=== PATIENT | male | born 1995 | race Caucasian/White ===

== ENCOUNTER 2017-10-24 10:23 | Emergency (ER) | payer OTHER ==
[2017-10-24] MEDS ORDERED: NS 1,000 ML IV ONE (10:30)
[2017-10-24] MEDS ORDERED: KETOROLAC 30 MG/1 ML SDV IVP ONE (10:30)
[2017-10-24] MEDS ORDERED: PROMETHAZINE HCL 25 MG/ML INJ IVP ONE (10:30)
--- NOTE | 2017-10-24 10:39 | EDPHY ---
H & P Stated Complaint: N/V/D gen abd cramps since yesterday Time Seen by Provider: 10/24/17 10:35 HPI/ROS: HPI: This is a 21-year-old male who presents with Chief Complaint: N/V/D gen abdominal cramps since yesterday Location:periumbilical abdomen Quality: N/V/D/cramps Duration: since yesterday evening around 7 pm Signs and Symptoms: no fever, + nausea, + vomiting, no hematemesis, no blood in stool, no abdominal bloating, + diarrhea, no back pain, no urinary symptoms, no testicular/groin pain, no indigestion, no chest pain, no shortness of breath Timing: Acute, intermittent episodes Severity: Mild Context: Patient is originally from [place], presents with complaints of sudden onset of nausea and abdominal cramps in the periumbilical area that started yesterday around 7:00 p.m. He reports that he had a burger from a restaurant around 2:00 p.m. He then felt nauseous and has vomited initially water and then bile for total of 4 times. He has had 3-4 loose stools. He denies hematemesis, blood in stool, fever, urinary symptoms. Patient reports that he has similar occurrences in the past with negative colonoscopy in 2016 and negative endoscopy in 2010. He was told that he has irritable bowel. He does admit to smoking marijuana daily for the last several weeks. Last use of marijuana was yesterday evening. No recent antibiotic use. No recent foreign travel. He moved from [place] to [place] for employment reasons. Modifying Factors: None Comment: ROS: see HPI Constitutional: No fever, no chills, no weight loss Eyes: No blurred vision Respiratory: No shortness of breath, no cough Cardiovascular: No chest pain, no palpitations Gastrointestinal: + nausea, + vomiting, +diarrhea, no hematemesis, no blood in stool Genitourinary: No dysuria, no blood in urine Extremities: No myalgias, no edema Neurologic: No weakness, no numbness Skin: No rashes, no petechiae Hematologic: No bruising, no bleeding MEDICAL/SURGICAL/SOCIAL HISTORY: Medical history: Depression, irritable bowel syndrome Surgical history: Denies Social history: Regular marijuana use. Employed. Smoker. Family history noncontributory. CONSTITUTIONAL: Extremely, well-appearing redheaded teenage male, awake and alert, no obvious distress HEENT: Atraumatic and normocephalic, PERRL, EOMI. Nares patent; no rhinorrhea; no nasal mucosal edema. Tympanic membranes clear. Oropharynx clear, no exudate and moist pink mucosa. Airway patent. No lymphadenopathy. No meningismus. Cardiovascular: Normal S1/S2, regular rate, regular rhythm, without murmur rub or gallop. PULMONARY/CHEST: Symmetrical and nontender. Clear to auscultation bilaterally. Good air movement. No accessory muscle usage. ABDOMEN: Soft, nondistended, nontender, no rebound, no guarding, no peritoneal signs, no masses or organomegaly. No CVAT. EXTREMITIES: 2/2 pulses, strength 5/5, no deformities, no clubbing, no cyanosis or edema. NEUROLOGICAL: no focal neuro deficits. GCS 15. SKIN: Warm and dry, no erythema. no rash. Good capillary refill. Source: Patient Exam Limitations: No limitations - Medical/Surgical History Hx Asthma: No Hx Chronic Respiratory Disease: No Hx Diabetes: No Hx Cardiac Disease: No Hx Renal Disease: No Hx Cirrhosis: No Hx Alcoholism: No Hx HIV/AIDS: No Hx Splenectomy or Spleen Trauma: No Other PMH: depression - Social History Smoking Status: Current some day smoker Constitutional: Initial Vital Signs Temperature (C) 37.0 C 10/24/17 10:25 Heart Rate 89 10/24/17 10:25 Respiratory Rate 18 10/24/17 10:25 Blood Pressure 101/80 10/24/17 10:25 O2 Sat (%) 97 10/24/17 10:25 O2 Delivery Mode Room Air Allergies/Adverse Reactions: No Known Allergies Allergy (Unverified 10/24/17 10:25) Home Medications: Medication Instructions Recorded Lexapro 10/24/17 Ondansetron Odt [Zofran Odt 4 mg 4 mg PO Q4 PRN #12 tab 10/24/17 (*)] Medical Decision Making ED Course/Re-evaluation: Vital signs reviewed and stable. No systemic signs. Patient's abdomen is soft and nontender. Doubt surgical process. Suspect this is related to cyclical vomiting syndrome secondary to daily marijuana use. Given 1 L normal saline, IV promethazine 12.5 mg, IV Toradol 30 mg, IV Ativan 1 mg, IV Haldol 2.5 mg 1128: Labs reviewed. No signs of leukocytosis/anemia/platelet dysfunction/GUSTAVO/ elevated LFTs/electrolyte imbalance/pancreatitis. 1215: Reassessed patient who is asking to be discharged home as"I feel better. " Abdomen remains soft and nontender. Passed p.o. Trial. Given a prescription for Zofran and advised to stop smoking marijuana. This patient was seen under the supervision of my secondary supervising physician. I evaluated care for this patient independently. Discussed this patient with Dr. Menendez. Differential Diagnosis: Abdominal pain including but not limited to appendicitis, cholecystitis, gastritis and urinary tract infection. - Data Points Laboratory Results: Laboratory Results 10/24/17 10:40 10/24/17 10:40 10/24/17 10/24/17 10:40 10:40 WBC 5.49 10^3/uL 10^3/uL (3.80-9.50) RBC 5.64 10^6/uL 10^6/uL (4.40-6.38) Hgb 17.4 g/dL g/dL (13.7-17.5) Hct 49.1 % % (40.0-51.0) MCV 87.1 fL fL (81.5-99.8) MCH 30.9 pg pg (27.9-34.1) MCHC 35.4 g/dL g/dL (32.4-36.7) RDW 12.1 % % (11.5-15.2) Plt Count 220 10^3/uL 10^3/uL (150-400) MPV 10.3 fL fL (8.7-11.7) Neut % (Auto) 68.4 % % (39.3-74.2) Lymph % (Auto) 24.0 % % (15.0-45.0) [place] % (Auto) 4.2 % L % (4.5-13.0) Eos % (Auto) 2.6 % % (0.6-7.6) Baso % (Auto) 0.4 % % (0.3-1.7) Nucleat RBC Rel Count 0.0 % % (0.0-0.2) Absolute Neuts (auto) 3.76 10^3/uL 10^3/uL (1.70-6.50) Absolute Lymphs (auto) 1.32 10^3/uL 10^3/uL (1.00-3.00) Absolute Monos (auto) 0.23 10^3/uL L 10^3/uL (0.30-0.80) Absolute Eos (auto) 0.14 10^3/uL 10^3/uL (0.03-0.40) Absolute Basos (auto) 0.02 10^3/uL 10^3/uL (0.02-0.10) Absolute Nucleated RBC 0.00 10^3/uL 10^3/uL (0-0.01) Immature Gran % 0.4 % % (0.0-1.1) Immature Gran # 0.02 10^3/uL 10^3/uL (0.00-0.10) Sodium 141 mEq/L mEq/L (135-145) Potassium 3.9 mEq/L mEq/L (3.3-5.0) Chloride 106 mEq/L mEq/L (97-110) Carbon Dioxide 22 mEq/l mEq/l (22-31) Anion Gap 13 mEq/L mEq/L (8-16) BUN 12 mg/dL mg/dL (7-23) Creatinine 1.0 mg/dL mg/dL (0.7-1.3) Estimated GFR > 60 Glucose 101 mg/dL H mg/dL (70-100) Calcium 9.7 mg/dL mg/dL (8.5-10.4) Total Bilirubin 0.7 mg/dL mg/dL (0.1-1.4) Conjugated Bilirubin 0.2 mg/dL mg/dL (0.0-0.5) Unconjugated Bilirubin 0.5 mg/dL mg/dL (0.0-1.1) AST 26 IU/L IU/L (17-59) ALT 33 IU/L IU/L (21-72) Alkaline Phosphatase 78 IU/L IU/L (38-126) Total Protein 7.6 g/dL g/dL (6.3-8.2) Albumin 5.0 g/dL g/dL (3.5-5.0) Lipase 174 IU/L IU/L (23-300) Medications Given: Discontinued Medications Haloperidol Lactate (Haldol Injection) 2.5 mg IVP EDNOW ONE Stop: 10/24/17 10:41 Last Admin: 10/24/17 11:09 Dose: 2.5 mg Sodium Chloride (Ns) 1,000 mls @ 0 mls/hr IV EDNOW ONE; Wide Open PRN Reason: Protocol Stop: 10/24/17 10:31 Last Admin: 10/24/17 10:50 Dose: 1,000 mls Ketorolac Tromethamine (Toradol) 30 mg IVP EDNOW ONE Stop: 10/24/17 10:31 Last Admin: 10/24/17 11:07 Dose: 30 mg Lorazepam (Ativan Injection) 1 mg IVP EDNOW ONE Stop: 10/24/17 10:41 Last Admin: 10/24/17 11:06 Dose: 1 mg Promethazine HCl (Phenergan) 12.5 mg IVP EDNOW ONE Stop: 10/24/17 10:31 Last Admin: 10/24/17 11:05 Dose: 12.5 mg Departure - Departure Disposition: Home, Routine, Self-Care Clinical Impression: Marijuana user, Non-intractable cyclical vomiting with nausea Condition: Good Instructions: Cyclic Vomiting Syndrome (ED) Additional Instructions: Consume a minimum of 8-10 glasses of water or electrolyte fluid replacement drinks that include Gatorade, Powerade, Pedialyte. Eat a bland diet for the next 48 hours and then slowly advance as tolerated. Take Zofran 1 tab every 4 hours as needed for nausea, vomiting. Refrain from using marijuana as this can contribute to cyclical vomiting syndrome. Return to the Emergency Room if symptoms do not resolve in the next 48-72 hours , you spike a fever > 102 F, or experience intractable abdominal pain/nausea/ vomiting. Referrals: NADIR WHITLEY [Other] - As per Instructions Prescriptions: Ondansetron Odt [Zofran Odt 4 mg (*)] 4 mg PO Q4 PRN #12 tab PRN Reason: Nausea/Vomiting, Use 1st
[2017-10-24] MEDS ORDERED: LORazepam 2 MG/ML INJ IVP ONE (10:40)
[2017-10-24] MEDS ORDERED: HALOPERIDOL LACT 5 MG/ML INJ IVP ONE (10:40)
[2017-10-24 11:00] LABS: PLATELET COUNT 220 10^3/uL (150-400)
[2017-10-24 11:12] VITALS: BP 118/78
== END 2017-10-24 11:45 | disposition home or self-care (01) ==
DX: G43.A0 Cyclical vomiting, in migraine, not intractable (principal); R10.9 Unspecified abdominal pain; E86.9 Volume depletion, unspecified; F17.200 Nicotine dependence, unspecified, uncomplicated
CPT/HCPCS: 96374; J1630; J1885; J2060; J2550

== ENCOUNTER 2017-12-11 18:10 | Emergency (ER) | payer OTHER ==
[2017-12-11] MEDS ORDERED: ONDANSETRON DISINTEGRATING 4 MG TAB PO ONE (18:24)
--- NOTE | 2017-12-11 19:12 | EDPHY ---
H & P Stated Complaint: n/v, abd pain Time Seen by Provider: 12/11/17 19:12 HPI/ROS: HPI: This is a 22-year-old male who presents with Chief Complaint: n/v, abd pain Location: GI Quality: Nausea vomiting, abdominal pain Duration: Since this morning Signs and Symptoms: no fever, + nausea, + vomiting, no hematemesis, no blood in stool, no abdominal bloating, no diarrhea, no back pain, no urinary symptoms, no testicular/groin pain, no indigestion, no chest pain, no shortness of breath Timing: Acute Severity: Mild Context: Patient has a history of gastritis and takes Pepcid and Zantac as needed presents with waking up this morning feeling nauseous and vomiting 1-3 times that consisted of bile and then brown tinged liquid that he was concerned about was bleeding. Patient reports that he does not live in [place] and in his home state he had an EGD and colonoscopy performed approximately 2 years ago that showed gastritis. Patient denies any regular alcohol use, regular NSAID use, regular steroid use. He has no blood in his stool. He has an appointment with Gastroenterology in 1 week. Modifying Factors: Pepcid and Zantac Comment: ROS: A comprehensive 10 system review of systems is otherwise negative aside from elements mentioned in the history of present illness. MEDICAL/SURGICAL/SOCIAL HISTORY: Medical history: Depression, gastritis Surgical history: Denies Social history: Former smoker. Family history noncontributory. CONSTITUTIONAL: Extremely polite and cooperative adult white male, awake and alert, no obvious distress HEENT: Atraumatic and normocephalic, PERRL, EOMI. Nares patent; no rhinorrhea; no nasal mucosal edema. Tympanic membranes clear. Oropharynx clear, no exudate and moist pink mucosa. Airway patent. No lymphadenopathy. No meningismus. Cardiovascular: Normal S1/S2, regular rate, regular rhythm, without murmur rub or gallop. PULMONARY/CHEST: Symmetrical and nontender. Clear to auscultation bilaterally. Good air movement. No accessory muscle usage. ABDOMEN: Soft, nondistended, nontender, no rebound, no guarding, no peritoneal signs, no masses or organomegaly. No CVAT. EXTREMITIES: 2/2 pulses, strength 5/5, no deformities, no clubbing, no cyanosis or edema. NEUROLOGICAL: no focal neuro deficits. GCS 15. SKIN: Warm and dry, no erythema. no rash. Good capillary refill. Source: Patient Exam Limitations: No limitations - Personal History Current Tetanus/Diphtheria Vaccine: Unsure Current Tetanus Diphtheria and Acellular Pertussis (TDAP): Unsure - Medical/Surgical History Hx Asthma: No Hx Chronic Respiratory Disease: No Hx Diabetes: No Hx Cardiac Disease: No Hx Renal Disease: No Hx Cirrhosis: No Hx Alcoholism: No Hx HIV/AIDS: No Hx Splenectomy or Spleen Trauma: No Other PMH: depression - Social History Smoking Status: Former smoker Constitutional: Initial Vital Signs Temperature (C) 36.6 C 12/11/17 18:19 Heart Rate 99 12/11/17 18:19 Respiratory Rate 24 H 12/11/17 18:19 Blood Pressure 101/83 H 12/11/17 18:19 O2 Sat (%) 98 12/11/17 18:19 O2 Delivery Mode Room Air Allergies/Adverse Reactions: No Known Allergies Allergy (Unverified 12/11/17 18:18) Home Medications: Medication Instructions Recorded Lexapro 10/24/17 Ondansetron Odt [Zofran Odt 4 mg 4 mg PO Q4 PRN #12 tab 10/24/17 (*)] Pantoprazole Sodium [Protonix 40mg 40 mg PO BID #14 tab 12/11/17 (*)] Pepcid 12/11/17 Sucralfate [Carafate 1 GM (*)] 1 gm PO ACHS #28 tab 12/11/17 Medical Decision Making - Diagnostics Imaging Results: Imaging Impressions Abdomen X-Ray 12/11/17 19:27 Impression: 1. No acute cardiopulmonary process. 2. Nonobstructive bowel gas pattern. ED Course/Re-evaluation: Vital signs reviewed and stable upon arrival. Laboratory studies, IV fluids, IV and oral medications, x-ray ordered Given Protonix, Zofran, GI cocktail with adequate relief of discomfort X-ray my read shows no free air or signs of perforation. + nonobstructive bowel gas pattern Laboratory studies reviewed and grossly unremarkable. Patient given a prescription for Protonix and Carafate and advised to keep follow-up appointment with Gastroenterology as previously scheduled Abdomen soft and nontender. Doubt surgical process. This patient was seen under the supervision of my secondary supervising physician. I evaluated care for this patient independently. Discussed this patient with Dr. Rod. Differential Diagnosis: Differential diagnosis includes but is not limited to gastritis, peptic ulcer disease, GERD, small-bowel obstruction, esophageal varices, gastric perforation , gallbladder disease. - Data Points Laboratory Results: Laboratory Results 12/11/17 19:20 12/11/17 19:20 12/11/17 12/11/17 19:20 19:20 WBC 10.85 10^3/uL H 10^3/uL (3.80-9.50) RBC 5.79 10^6/uL 10^6/uL (4.40-6.38) Hgb 18.3 g/dL H g/dL (13.7-17.5) Hct 49.7 % % (40.0-51.0) MCV 85.8 fL fL (81.5-99.8) MCH 31.6 pg pg (27.9-34.1) MCHC 36.8 g/dL H g/dL (32.4-36.7) RDW 12.0 % % (11.5-15.2) Plt Count 275 10^3/uL 10^3/uL (150-400) MPV 10.2 fL fL (8.7-11.7) Neut % (Auto) 78.7 % H % (39.3-74.2) Lymph % (Auto) 11.7 % L % (15.0-45.0) [place] % (Auto) 3.1 % L % (4.5-13.0) Eos % (Auto) 6.0 % % (0.6-7.6) Baso % (Auto) 0.3 % % (0.3-1.7) Nucleat RBC Rel Count 0.0 % % (0.0-0.2) Absolute Neuts (auto) 8.54 10^3/uL H 10^3/uL (1.70-6.50) Absolute Lymphs (auto) 1.27 10^3/uL 10^3/uL (1.00-3.00) Absolute Monos (auto) 0.34 10^3/uL 10^3/uL (0.30-0.80) Absolute Eos (auto) 0.65 10^3/uL H 10^3/uL (0.03-0.40) Absolute Basos (auto) 0.03 10^3/uL 10^3/uL (0.02-0.10) Absolute Nucleated RBC 0.00 10^3/uL 10^3/uL (0-0.01) Immature Gran % 0.2 % % (0.0-1.1) Immature Gran # 0.02 10^3/uL 10^3/uL (0.00-0.10) RBC/WBC/PLT Morphology TNP Platelet Estimate TNP Sodium 139 mEq/L mEq/L (135-145) Potassium 3.5 mEq/L mEq/L (3.3-5.0) Chloride 102 mEq/L mEq/L (97-110) Carbon Dioxide 20 mEq/l L mEq/l (22-31) Anion Gap 17 mEq/L H mEq/L (6-14) BUN 18 mg/dL mg/dL (7-23) Creatinine 1.1 mg/dL mg/dL (0.7-1.3) Estimated GFR > 60 Glucose 105 mg/dL H mg/dL (70-100) Calcium 10.5 mg/dL H mg/dL (8.5-10.4) Total Bilirubin 1.2 mg/dL mg/dL (0.1-1.4) Conjugated Bilirubin 0.2 mg/dL mg/dL (0.0-0.5) Unconjugated Bilirubin 1.0 mg/dL mg/dL (0.0-1.1) AST 29 IU/L IU/L (17-59) ALT 34 IU/L IU/L (21-72) Alkaline Phosphatase 77 IU/L IU/L (38-126) Total Protein 7.9 g/dL g/dL (6.3-8.2) Albumin 5.1 g/dL H g/dL (3.5-5.0) Lipase 151 IU/L IU/L (23-300) Medications Given: Pantoprazole Sodium (Protonix) 40 mg IVP ONCE ONE Stop: 12/12/17 19:27 Last Admin: 18 19:34 Dose: 40 mg Discontinued Medications Al Hydroxide/Mg Hydroxide (Maalox Susp) 30 ml PO ONCE ONE Stop: 12/11/17 19:27 Last Admin: 12/11/17 19:32 Dose: 30 ml Hyoscyamine Sulfate (Levsin, Hyomax-Sl) 0.25 mg PO ONCE ONE Stop: 12/11/17 19:27 Last Admin: 12/11/17 19:32 Dose: 0.25 mg Lidocaine (Lidocaine 2% Viscous) 15 ml PO ONCE ONE Stop: 12/11/17 19:27 Last Admin: 12/11/17 19:32 Dose: 15 ml Ondansetron HCl (Zofran Odt) 4 mg PO EDNOW ONE Stop: 12/11/17 18:25 Last Admin: 12/11/17 18:39 Dose: 4 mg Departure - Departure Disposition: Home, Routine, Self-Care Clinical Impression: Gastritis Qualifiers: Gastritis type: unspecified gastritis Chronicity: chronic Gastritis bleeding: presence of bleeding unspecified Qualified Code(s): K29.50 - Unspecified chronic gastritis without bleeding Condition: Good Instructions: Diet for Stomach Ulcers and Gastritis (ED), Gastritis (ED) Additional Instructions: Take Pepcid as directed. Start taking Protonix 40 mg twice daily. Follow gastritis/stomach ulcer diet. Take Carafate 30 min before meals 3 times a day and at bedtime x7 days. Keep follow-up appointment with Gastroenterology as directed. Referrals: PCP Not In,Dictionary [Medical Doctor] - As per Instructions (Keep follow-up appointment with Gastroenterology already scheduled) Stand Alone Forms: School Excuse Prescriptions: Pantoprazole Sodium [Protonix 40mg (*)] 40 mg PO BID #14 tab Sucralfate [Carafate 1 GM (*)] 1 gm PO ACHS #28 tab
[2017-12-11 19:20] VITALS: BP 127/78
[2017-12-11] MEDS ORDERED: GABAPENTIN 100 MG CAP ONE (19:25)
[2017-12-11] MEDS ORDERED: HYOSCYAMINE SULFATE 0.125 MG TAB PO ONE (19:26)
[2017-12-11] MEDS ORDERED: LIDOCAINE 2% VISCOUS 15 ML UDCUP PO ONE (19:26)
[2017-12-11] MEDS ORDERED: MAG HYDROX/AL HYDROX/SIMETH 30 ML UDCUP PO ONE (19:26)
[2017-12-11 19:33] LABS: PLATELET COUNT 275 10^3/uL (150-400)
[2017-12-11] MEDS ORDERED: PANTOPRAZOLE SODIUM 40 MG VIAL ONE (19:34)
[2017-12-12] MEDS ORDERED: PANTOPRAZOLE SODIUM 40 MG VIAL IVP ONE (19:26)
== END 2017-12-11 20:25 | disposition home or self-care (01) ==
DX: K29.70 Gastritis, unspecified, without bleeding (principal); Z87.891 Personal history of nicotine dependence
CPT/HCPCS: 96374

== ENCOUNTER 2018-06-12 13:49 | Emergency (ER) | payer OTHER ==
--- NOTE | 2018-06-12 14:20 | EDPHY ---
H & P Time Seen by Provider: 06/12/18 13:56 HPI/ROS: Chief complaint. Testicle pain HPI. 22-year-old male with 5 day history of pain swelling right testicle. Gradual onset. No trauma. No urinary symptoms. No penile discharge. No new or different sex partners. No similar symptoms previously. No fever. Increased pain with palpation upper posterior aspect of the right testicle. ROS 10 systems were reviewed and negative with the exception of the elements mentioned in the history of present illness Past Medical/Surgical History: Depression Social History: Single, nonsmoker, no alcohol Smoking Status: Former smoker Physical Exam: General Appearance: Alert pleasant well-developed male mild distress stable Eyes: Pupils equal and round no pallor or injection. ENT, Mouth: Mucous membranes are moist. Respiratory: There are no retractions, lungs are clear to auscultation. Cardiovascular: Regular rate and rhythm. Gastrointestinal: Abdomen is soft and nontender, no masses, bowel sounds normal. Right testicle without significant swelling. Tenderness over the epididymis posteriorly. Normal orientation. Penis is circumcised and normal. No left testicle tenderness Neurological: Awake and alert, sensory and motor exams grossly normal. Skin: Warm and dry, no rashes. Musculoskeletal: Neck is supple nontender. Extremities symmetrical, full range of motion. Psychiatric: Patient is oriented X 3, there is no agitation. Constitutional: Initial Vital Signs Temperature (C) 37.0 C 06/12/18 13:51 Heart Rate 84 06/12/18 13:51 Respiratory Rate 16 06/12/18 13:51 Blood Pressure 109/70 06/12/18 13:51 O2 Sat (%) 97 06/12/18 13:51 O2 Delivery Mode Room Air Allergies/Adverse Reactions: No Known Allergies Allergy (Unverified 12/11/17 18:18) Home Medications: Medication Instructions Recorded Lexapro 10/24/17 Ondansetron Odt [Zofran Odt 4 mg 4 mg PO Q4 PRN #12 tab 10/24/17 (*)] Pantoprazole Sodium [Protonix 40mg 40 mg PO BID #14 tab 12/11/17 (*)] Pepcid 12/11/17 Sucralfate [Carafate 1 GM (*)] 1 gm PO ACHS #28 tab 12/11/17 Doxycycline Hyclate 100 mg PO BID #20 tab 06/12/18 Medical Decision Making - Diagnostics Imaging Results: Imaging Impressions Testicular Ultrasound 06/12/18 14:19 Impression: Normal ultrasound testes. Findings and recommendations discussed with Emergency Department physician, JOSE DAVID PANDEY at 15:00 hour, 06/12/2018. Final report concurs with initial preliminary interpretation. Ultrasound testicle reviewed by me shows no mass or torsion Procedures: Ceftriaxone IM and doxycycline orally in the ED ED Course/Re-evaluation: Patient and I discussed imaging and lab results. We discussed treatment plan including criteria for return and importance of follow-up and further evaluation. He expresses understanding and agreement Differential Diagnosis: Clinically the patient has epididymitis. I considered torsion and testicular mass as well as urinary tract infection. - Data Points Laboratory Results: 06/12/18 06/12/18 14:33 14:33 Urine Color YELLOW Urine Appearance CLEAR Urine pH 5.0 (5.0-7.5) Ur Specific [place] 1.015 (1.002-1.030) Urine Protein NEGATIVE (NEGATIVE) Urine Ketones NEGATIVE (NEGATIVE) Urine Blood NEGATIVE (NEGATIVE) Urine Nitrate NEGATIVE (NEGATIVE) Urine Bilirubin NEGATIVE (NEGATIVE) Urine Urobilinogen NEGATIVE EU EU (0.2-1.0) Ur Leukocyte Esterase NEGATIVE (NEGATIVE) Urine RBC 1-3 /hpf /hpf (0-3) Urine WBC 1-3 /hpf /hpf (0-3) Ur Epithelial Cells NONE SEEN /lpf /lpf (NONE-1+) Urine Mucus 1+ /lpf /lpf (NONE-1+) Urine Glucose NEGATIVE (NEGATIVE) C.trachomatis RNA (TMA) Pending N.gonorrhoeae RNA (TMA) Pending Departure - Departure Disposition: Home, Routine, Self-Care Clinical Impression: Epididymitis Condition: Good Instructions: Epididymitis (ED) Additional Instructions: Scrotal support Ibuprofen 600 mg every 6 hr for discomfort Doxycycline as antibiotic twice daily for 10 days Discontinue the Carafate while taking the doxycycline as it interferes with antibiotic absorption Return for worsening symptoms Referrals: NONE *PRIMARY CARE P,. [Primary Care Provider] - As per Instructions Tejas Poe MD [Medical Doctor] - 3-4 days, if not improved Prescriptions: Doxycycline Hyclate 100 mg PO BID #20 tab
[2018-06-12] MEDS ORDERED: DOXYCYCLINE HYCLATE 100 MG CAP/TAB PO ONE (15:08)
[2018-06-12 16:13] VITALS: BP 100/65
[2018-06-13 11:57] LABS: GC AMPLIFICATION GENPROBE NEGATIVE (NEGATIVE)
== END 2018-06-12 15:59 | disposition home or self-care (01) ==
DX: N45.1 Epididymitis (principal); Z87.891 Personal history of nicotine dependence
CPT/HCPCS: J0696